=== PATIENT | male | born 1990 | race Caucasian/White ===

== ENCOUNTER 2019-02-01 10:03 | Inpatient (IN) | payer BC ==
[~2019-02-01] VITALS: Ht 157.5 cm; Wt 67.3 kg
[2019-02-01] MEDS ORDERED: 0.9 % SODIUM CHLORIDE 10 ML DISP.SYRIN. IV PRN ×2 (10:45→12:30)
[2019-02-01] MEDS ORDERED: MORPHINE SULFATE 4 MG/ML VIAL. IV/SQ PRN (10:45)
--- NOTE | 2019-02-01 11:00 | PHYS DOC ---
Past Medical History Past Medical History: No Pertinent History Past Surgical History: Other Additional Past Surgical Histo: Scoliosis surgery, with spinal fusion Alcohol Use: Occasionally Drug Use: None Adult General Chief Complaint Chief Complaint: SHORTNESS OF BREATH HPI HPI Patient is a 28 year old male with history scoliosis who presents to the ED today complaining of shortness of breath and a cough that began last week. Patient states he was seen at urgent care a week ago for fever, cough and shortness of breath. He states he was given Tamiflu. He states he went home and has been taking Tamiflu until Tuesday when he felt his symptoms have gotten worse. He went back to urgent care where he was given Augmentin, prednisone and codeine with promethazine. He states he has been taking this medications with no relief. He states he feels he is getting worse. Review of Systems Review of Systems Constitutional: Denies fever or chills [] Eyes: Denies change in visual acuity, redness, or eye pain [] HENT: Denies nasal congestion or sore throat [] Respiratory: Reports cough and shortness of breath GI: Denies abdominal pain, nausea, vomiting, bloody stools or diarrhea [] : Denies dysuria or hematuria [] Musculoskeletal: Denies back pain or joint pain [] Integument: Denies rash or skin lesions [] Neurologic: Denies headache, focal weakness or sensory changes [] All other systems were reviewed and found to be within normal limits, except as documented in this note. Current Medications Current Medications Current Medications Medications (Trade) Dose Ordered Sig/Teri Start Time Stop Time Status Last Admin Dose Admin Acetaminophen (Tylenol) 1,000 mg 1X ONCE 02/01/19 11:15 02/01/19 11:16 DC 02/01/19 11:18 1,000 MG Albuterol/ Ipratropium (Duoneb) 3 ml STK-MED ONCE 02/01/19 11:11 02/01/19 11:11 DC Levofloxacin/ Dextrose 100 ml @ 100 mls/hr 1X ONCE 02/01/19 11:45 02/01/19 12:44 UNV Methylprednisolone Sodium Succinate (SOLU-Medrol 125MG VIAL) 125 mg 1X ONCE 02/01/19 11:15 02/01/19 11:16 DC 02/01/19 11:14 125 MG Morphine Sulfate (Morphine Sulfate) 2 mg PRN Q2HR PRN 02/01/19 11:45 02/02/19 11:44 UNV Ondansetron HCl (Zofran) 4 mg PRN Q8HRS PRN 02/01/19 11:45 02/02/19 11:44 UNV Piperacillin Sod/ Tazobactam Sod 4.5 gm/Sodium Chloride 100 ml @ 200 mls/hr 1X ONCE 02/01/19 11:30 02/01/19 11:59 Sodium Chloride (Normal Saline Flush) 10 ml QSHIFT PRN 02/01/19 10:45 Allergies Allergies Allergies Coded Allergies Type Severity Reaction Last Updated Verified No Known Drug Allergies 02/01/19 No Physical Exam Physical Exam Constitutional: Well developed, well nourished, no acute distress, non-toxic appearance. [] HENT: Normocephalic, atraumatic, bilateral external ears normal, oropharynx moist, no oral exudates, nose normal. [] Eyes: PERRLA, EOMI, conjunctiva normal, no discharge. [] Neck: Normal range of motion, no tenderness, supple, no stridor. [] Cardiovascular: Tachycardic Lungs & Thorax: Bilateral breath sounds clear to auscultation [] Abdomen: Bowel sounds normal, soft, no tenderness, no masses, no pulsatile mas ses. [] Skin: Warm, dry, no erythema, no rash. [] Back: Scoliosis noted. No tenderness, no CVA tenderness. [] Extremities: No tenderness, no cyanosis, no clubbing, ROM intact, no edema. [] Neurologic: Alert and oriented X 3, normal motor function, normal sensory function, no focal deficits noted. [] Psychologic: Affect normal, judgement normal, mood normal. [] Current Patient Data Vital Signs Vital Signs Date Time Temp Pulse Resp B/P (MAP) Pulse Ox O2 Delivery O2 Flow Rate FiO2 02/01/19 11:27 93 Room Air 02/01/19 11:16 20 2.0 02/01/19 10:32 98.8 136 129/83 (98) 98.8 Lab Values Laboratory Tests Test 02/01/19 11:05 White Blood Count 17.4 x10^3/uL (4.0-11.0) H Red Blood Count 4.84 x10^6/uL (4.30-5.70) Hemoglobin 14.6 g/dL (13.0-17.5) Hematocrit 42.0 % (39.0-53.0) Mean Corpuscular Volume 87 fL (79-100) Mean Corpuscular Hemoglobin 30 pg (25-35) Mean Corpuscular Hemoglobin Concent 35 g/dL (31-37) Red Cell Distribution Width 12.5 % (11.5-14.5) Platelet Count 396 x10^3/uL (140-400) Neutrophils (%) (Auto) 92 % (31-73) H Lymphocytes (%) (Auto) 4 % (24-48) L Monocytes (%) (Auto) 4 % (0-9) Eosinophils (%) (Auto) 0 % (0-3) Basophils (%) (Auto) 0 % (0-3) Neutrophils # (Auto) 15.9 x10^3/uL (1.8-7.7) H Lymphocytes # (Auto) 0.6 x10^3/uL (1.0-4.8) L Monocytes # (Auto) 0.7 x10^3/uL (0.0-1.1) Eosinophils # (Auto) 0.1 x10^3/uL (0.0-0.7) Basophils # (Auto) 0.0 x10^3/uL (0.0-0.2) Platelet Estimate Pending Sodium Level 136 mmol/L (136-145) Potassium Level 3.9 mmol/L (3.5-5.1) Chloride Level 98 mmol/L (98-107) Carbon Dioxide Level 27 mmol/L (21-32) Anion Gap 11 (6-14) Blood Urea Nitrogen 12 mg/dL (8-26) Creatinine 0.8 mg/dL (0.7-1.3) Estimated GFR (Cockcroft-Gault) 114.3 BUN/Creatinine Ratio 15 (6-20) Glucose Level 114 mg/dL (70-99) H Calcium Level 9.0 mg/dL (8.5-10.1) Total Bilirubin Pending Aspartate Amino Transferase (AST) Pending Alanine Aminotransferase (ALT) Pending Alkaline Phosphatase Pending Total Protein Pending Albumin Pending Albumin/Globulin Ratio Pending Laboratory Tests 02/01/19 11:05 Laboratory Tests 02/01/19 11:05 EKG EKG [address] Mckinley sinus tachycardia HR 127 no STEMI[] Radiology/Procedures Radiology/Procedures []PROCEDURE: PORTABLE CHEST 1V EXAM: CHEST ONE VIEW. HISTORY: Shortness of breath. COMPARISON: None. FINDINGS: A frontal view of the chest is obtained. There is a moderate relatively focal midthoracic dextroscoliosis resulting in chest wall deformity and small lung volumes. There is an airspace infiltrate in the right upper lobe. Lesser opacities in both bases may indicate atelectasis. Relative mesocardia may be secondary to scoliosis. There is no pneumothorax or clear pleural effusion. The heart is not enlarged. IMPRESSION: 1. Right upper lobe pneumonia. 2. Lesser bibasilar atelectasis or infiltrate in the setting of chest wall deformity. Electronically signed by: Sahara Schwab MD (02/01/2019 11:04 AM) [facility] DICTATED and SIGNED BY: JOCELIN SCHWAB MD DATE: 02/01/19 1102 Course & Med Decision Making Course & Med Decision Making Pertinent Labs and Imaging studies reviewed. (See chart for details) This is a 28-year-old male patient presented to the ED today with complaints of fever cough or shortness of breath, symptoms began a week ago. He was diagnosed with influenza and put on Tamiflu a week ago, symptoms did not improve. He went back to urgent care on Tuesday and was started on Augmentin prednisone and codeine with promethazine, symptoms have not improved. Vitals on arrival to the ED temperature 98.8, heart rate 136, blood pressure 129/83, O2 sats 88% on room air patient was put on 2 L of oxygen with O2 sats of 94%, respiration 22 Chest x-ray interpreted by radiologist was noted for Right upper lobe pneumonia. Patient was given Zosyn on arrival to the ED. Levaquin was also ordered. Labs are pending. Spoke with Dr. Sierra who accepted patient for admission Parveen Disclaimer Parveen Disclaimer This electronic medical record was generated, in whole or in part, using a voice recognition dictation system. Departure Departure Impression: Primary Impression: Right upper lobe pneumonia Additional Impressions: Tachycardia Hypoxia Disposition: ADMITTED INPATIENT Condition: STABLE Referrals: MICHAEL JACKSON (PCP) Problem Qualifiers Primary Impression: Right upper lobe pneumonia Pneumonia type: due to unspecified organism Qualified Codes: J18.9 - Pneumonia, unspecified organism KRISHAN SOFIA APRN Feb 01, 2019 11:00
--- NOTE | 2019-02-01 11:07 | RAD ---
EXAM: CHEST ONE VIEW. HISTORY: Shortness of breath. COMPARISON: None. FINDINGS: A frontal view of the chest is obtained. There is a moderate relatively focal midthoracic dextroscoliosis resulting in chest wall deformity and small lung volumes. There is an airspace infiltrate in the right upper lobe. Lesser opacities in both bases may indicate atelectasis. Relative mesocardia may be secondary to scoliosis. There is no pneumothorax or clear pleural effusion. The heart is not enlarged. IMPRESSION: 1. Right upper lobe pneumonia. 2. Lesser bibasilar atelectasis or infiltrate in the setting of chest wall deformity. Electronically signed by: Sahara Schwab MD (02/01/2019 11:04 AM) [facility]
[2019-02-01] MEDS ORDERED: IPRATRPIUM/ALBUTEROL 0.5/2.5MG 3 ML NEBU. ONE (11:11)
[2019-02-01] MEDS ORDERED: ACETAMINOPHEN 500 MG TABLET PO ONE (11:15)
[2019-02-01] MEDS ORDERED: methylPREDNISolone SOD SUCC PF 125 MG/2 ML VIAL. IV ONE (11:15)
[2019-02-01] MEDS ORDERED: IPRATRPIUM/ALBUTEROL 0.5/2.5MG 3 ML NEBU. NEB ONE (11:15)
[2019-02-01 11:17] LABS: BASO % 0 % (0-3); EOS # 0.1 x10^3/uL (0.0-0.7); EOS % 0 % (0-3); HEMOGLOBIN 14.6 g/dL (13.0-17.5); LYMPH # 0.6 x10^3/uL (1.0-4.8); LYMPH % 4 % (24-48); MEAN CORPUSCULAR HEMOGLOBIN 30 pg (25-35); MEAN CORPUSCULAR HGB CONC 35 g/dL (31-37); MEAN CORPUSCULAR VOLUME 87 fL (79-100); MONO # 0.7 x10^3/uL (0.0-1.1); MONO % 4 % (0-9); NEUT # 15.9 x10^3/uL (1.8-7.7); NEUT % 92 % (31-73); PLATELET COUNT 396 x10^3/uL (140-400); RED BLOOD COUNT 4.84 x10^6/uL (4.30-5.70); RED CELL DISTRIBUTION WIDTH 12.5 % (11.5-14.5); WHITE BLOOD COUNT 17.4 x10^3/uL (4.0-11.0)
[2019-02-01 11:28] LABS: CREATININE 0.8 mg/dL (0.7-1.3); GFR 114.3; POTASSIUM 3.9 mmol/L (3.5-5.1)
[2019-02-01] MEDS ORDERED: PIPERACILLIN/TAZOBACTAM 4.5 GM in IV NORMAL SALINE 100ML 100 ML IV ONE (11:30)
--- NOTE | 2019-02-01 11:33 | PDOC1 ---
History and Physical Date of Admission Date of Admission DATE: 02/01/19 TIME: 11:32 Identification/Chief Complaint Chief Complaint seen in er , 28 year old male with history scoliosis who presents to the ED today complaining of shortness of breath and a cough that began last week. he was seen at urgent care a week ago for fever, cough and shortness of breath. He states he was given Tamiflu. He states he went home and has been taking Tamiflu until Tuesday when he felt his symptoms // worse. went back to urgent care where he was given Augmentin, prednisone and codeine with promethazine. He states he has been taking this medications with no relief. He states he feels he is getting worse. is tachy and SOA Past Medical History Cardiovascular: No pertinent hx Heme/Onc: No pertinent hx Family History Family History: High Cholestrol, Hypertension Social History Smoke: No ALCOHOL: none Drugs: None Current Problem List Problem List Problems Medical Problems: (1) Right upper lobe pneumonia Status: Acute (2) Tachycardia Status: Acute Current Medications Current Medications Current Medications Sodium Chloride (Normal Saline Flush) 10 ml QSHIFT PRN IV AFTER MEDS AND BLOOD DRAWS; Start 02/01/19 at 10:45 Piperacillin Sod/ Tazobactam Sod 4.5 gm/Sodium Chloride 100 ml @ 200 mls/hr 1X ONCE IV ; Start 02/01/19 at 11:30; Stop 02/01/19 at 11:59 Morphine Sulfate (Morphine Sulfate) 4 mg PRN Q15MIN PRN IV/SQ PAIN GREATER THAN 3/10 Last administered on 02/01/19at 11:16; Start 02/01/19 at 10:45; Stop 02/02/19 at 10:44 Albuterol/ Ipratropium (Duoneb) 3 ml 1X ONCE NEB Last administered on 02/01/19at 11:23; Start 02/01/19 at 11:15; Stop 02/01/19 at 11:16; Status DC Methylprednisolone Sodium Succinate (SOLU-Medrol 125MG VIAL) 125 mg 1X ONCE IV Last administered on 02/01/19at 11:14; Start 02/01/19 at 11:15; Stop 02/01/19 at 11:16; Status DC Acetaminophen (Tylenol) 1,000 mg 1X ONCE PO Last administered on 02/01/19at 11:18; Start 02/01/19 at 11:15; Stop 02/01/19 at 11:16; Status DC Albuterol/ Ipratropium (Duoneb) 3 ml STK-MED ONCE .ROUTE ; Start 02/01/19 at 11:11; Stop 02/01/19 at 11:11; Status DC Allergies Allergies: Coded Allergies: No Known Drug Allergies (Unverified , 02/01/19) ROS Review of System Review of Systems Review of Systems Constitutional: Denies fever or chills [] Eyes: Denies change in visual acuity, redness, or eye pain [] HENT: Denies nasal congestion or sore throat [] Respiratory: Reports cough and shortness of breath GI: Denies abdominal pain, nausea, vomiting, bloody stools or diarrhea [] : Denies dysuria or hematuria [] Musculoskeletal: Denies back pain or joint pain [] Integument: Denies rash or skin lesions [] Neurologic: Denies headache, focal weakness or sensory changes [] 14 PT systems were reviewed and found to be within normal limits, except as documented General: YES: Chills Eyes: No Blurry vision, No Decreased vision, No Double vision, No Dry eyes, No Excessive tearing, No Eye Pain, No Itchy Eyes, No Loss of vision, No Photophobia, No Scotomata, No Uses contacts, No Uses glasses, No Other ALLERGY AND IMMUNOLOGY: No: Hives, Insect Bite Sensitivity, Itchy/Watery Eyes, Nasal Congestion, Post Nasal Drip, Seasonal Allergies, Other Respiratory: YES: Cough, Shortness of breath, SOB with excertion Gastrointestinal: No Nausea, No Vomiting, No Abdominal Pain, No Diarrhea, No Constipation, No Melena, No Hematochezia, No Other Physical Exam Physical Exam Physical Exam Physical Exam Constitutional: Well developed, well nourished, MILD acute distress, non-toxic appearance. [] HENT: Normocephalic, atraumatic, bilateral external ears normal, oropharynx moist, no oral exudates, nose normal. [] Eyes: PERRLA, EOMI, conjunctiva normal, no discharge. [] Neck: Normal range of motion, no tenderness, supple, no stridor. [] Cardiovascular: Tachycardic Lungs & Thorax: DEC RUL breath sounds [] Abdomen: Bowel sounds normal, soft, no tenderness, no masses, no pulsatile masses. [] Skin: Warm, dry, no erythema, no rash. [] Back: Scoliosis noted. No tenderness, no CVA tenderness. [] Extremities: No tenderness, no cyanosis, no clubbing, ROM intact, no edema. [] Neurologic: Alert and oriented X 3, normal motor function, normal sensory function, no focal deficits noted. [] Psychologic: Affect normal, judgment normal, mood normal. [] General: Alert, Oriented X3, Cooperative, mild distress HEENT: Atraumatic, PERRLA, EOMI Lungs: Normal air movement Heart: RRR, no thrills, other (TACHY) Abdomen: Normal bowel sounds, Soft PELVIC: Examination not indicated Extremities: No cyanosis, No edema Skin: No rashes Neuro: Normal speech, Strength at 5/5 X4 ext, Cranial nerves 3-12 NL Psych/Mental Status: Mental status NL, Mood NL Vitals Vitals Vital Signs Date Time Temp Pulse Resp B/P (MAP) Pulse Ox O2 Delivery O2 Flow Rate FiO2 02/01/19 11:27 93 Room Air 02/01/19 11:16 20 2.0 02/01/19 10:32 98.8 136 129/83 (98) 98.8 Labs Labs Laboratory Tests Test 02/01/19 11:05 White Blood Count 17.4 x10^3/uL (4.0-11.0) Red Blood Count 4.84 x10^6/uL (4.30-5.70) Hemoglobin 14.6 g/dL (13.0-17.5) Hematocrit 42.0 % (39.0-53.0) Mean Corpuscular Volume 87 fL (79-100) Mean Corpuscular Hemoglobin 30 pg (25-35) Mean Corpuscular Hemoglobin Concent 35 g/dL (31-37) Red Cell Distribution Width 12.5 % (11.5-14.5) Platelet Count 396 x10^3/uL (140-400) Neutrophils (%) (Auto) 92 % (31-73) Lymphocytes (%) (Auto) 4 % (24-48) Monocytes (%) (Auto) 4 % (0-9) Eosinophils (%) (Auto) 0 % (0-3) Basophils (%) (Auto) 0 % (0-3) Neutrophils # (Auto) 15.9 x10^3/uL (1.8-7.7) Lymphocytes # (Auto) 0.6 x10^3/uL (1.0-4.8) Monocytes # (Auto) 0.7 x10^3/uL (0.0-1.1) Eosinophils # (Auto) 0.1 x10^3/uL (0.0-0.7) Basophils # (Auto) 0.0 x10^3/uL (0.0-0.2) Sodium Level 136 mmol/L (136-145) Potassium Level 3.9 mmol/L (3.5-5.1) Chloride Level 98 mmol/L (98-107) Carbon Dioxide Level 27 mmol/L (21-32) Anion Gap 11 (6-14) Blood Urea Nitrogen 12 mg/dL (8-26) Creatinine 0.8 mg/dL (0.7-1.3) Estimated GFR (Cockcroft-Gault) 114.3 BUN/Creatinine Ratio 15 (6-20) Glucose Level 114 mg/dL (70-99) Calcium Level 9.0 mg/dL (8.5-10.1) Laboratory Tests Test 02/01/19 11:05 White Blood Count 17.4 x10^3/uL (4.0-11.0) Red Blood Count 4.84 x10^6/uL (4.30-5.70) Hemoglobin 14.6 g/dL (13.0-17.5) Hematocrit 42.0 % (39.0-53.0) Mean Corpuscular Volume 87 fL (79-100) Mean Corpuscular Hemoglobin 30 pg (25-35) Mean Corpuscular Hemoglobin Concent 35 g/dL (31-37) Red Cell Distribution Width 12.5 % (11.5-14.5) Platelet Count 396 x10^3/uL (140-400) Neutrophils (%) (Auto) 92 % (31-73) Lymphocytes (%) (Auto) 4 % (24-48) Monocytes (%) (Auto) 4 % (0-9) Eosinophils (%) (Auto) 0 % (0-3) Basophils (%) (Auto) 0 % (0-3) Neutrophils # (Auto) 15.9 x10^3/uL (1.8-7.7) Lymphocytes # (Auto) 0.6 x10^3/uL (1.0-4.8) Monocytes # (Auto) 0.7 x10^3/uL (0.0-1.1) Eosinophils # (Auto) 0.1 x10^3/uL (0.0-0.7) Basophils # (Auto) 0.0 x10^3/uL (0.0-0.2) Sodium Level 136 mmol/L (136-145) Potassium Level 3.9 mmol/L (3.5-5.1) Chloride Level 98 mmol/L (98-107) Carbon Dioxide Level 27 mmol/L (21-32) Anion Gap 11 (6-14) Blood Urea Nitrogen 12 mg/dL (8-26) Creatinine 0.8 mg/dL (0.7-1.3) Estimated GFR (Cockcroft-Gault) 114.3 BUN/Creatinine Ratio 15 (6-20) Glucose Level 114 mg/dL (70-99) Calcium Level 9.0 mg/dL (8.5-10.1) Images Images EXAM: CHEST ONE VIEW. HISTORY: Shortness of breath. COMPARISON: None. FINDINGS: A frontal view of the chest is obtained. There is a moderate relatively focal midthoracic dextroscoliosis resulting in chest wall deformity and small lung volumes. There is an airspace infiltrate in the right upper lobe. Lesser opacities in both bases may indicate atelectasis. Relative mesocardia may be secondary to scoliosis. There is no pneumothorax or clear pleural effusion. The heart is not enlarged. IMPRESSION: 1. Right upper lobe pneumonia. 2. Lesser bibasilar atelectasis or infiltrate in the setting of chest wall deformity. Electronically signed by: Sahara Schwab MD (02/01/2019 11:04 AM) [facility] DICTATED and SIGNED BY: JOCELIN SCHWAB MD DATE: 02/01/19 1104 VTE Prophylaxis Ordered VTE Prophylaxis Devices: Yes VTE Pharmacological Prophylaxi: Yes Assessment/Plan Assessment/Plan IMPRESSION: 1. Right upper lobe pneumonia. 2. Lesser bibasilar atelectasis or infiltrate in the setting of chest wall deformity 3. SEPSIS 4. ACUTE HYPOXIC RESP FAILURE 5. FAILED OUTPT TREATMENT plan admit iv antibiotics, LEVAQUIN, ZOSYN BLOOD CULTURES PULM CONSULT DUONEBS QID STREP PNEUMO URINARY AG IV FLUID BOLUS IN ER DVT PROPHYLAXIS O2 SUPPORT INFLUENZA SCREEN ID CONSULT 74 MIN PT EXAM, CHART REVIEW, > 50% OF TIME SPENT WITH EXAM, CHART REVIEW, PT CARE COORDINATION NGA MANCERA MD Feb 01, 2019 11:32
[2019-02-01 11:35] LABS: ALBUMIN 3.3 g/dL (3.4-5.0); ALBUMIN/GLOBULIN RATIO 0.7 (1.0-1.7); TOTAL BILIRUBIN 0.4 mg/dL (0.2-1.0); TOTAL PROTEIN 7.8 g/dL (6.4-8.2)
[2019-02-01] MEDS ORDERED: MORPHINE SULFATE 2 MG/ML VIAL. IV PRN (11:45)
[2019-02-01] MEDS ORDERED: ONDANSETRON PF 4 MG/2 ML VIAL. IV PRN ×2 (11:45→12:30)
[2019-02-01 11:47] LABS: BILIRUBIN,URINE NEGATIVE (NEG); CLARITY,URINE CLEAR; COLOR,URINE YELLOW; NITRITE,URINE NEGATIVE (NEG); PROTEIN,URINE NEGATIVE (NEG-TRACE); UROBILINOGEN,URINE 0.2 mg/dL (0.2 mg/dL)
[2019-02-01] MEDS ORDERED: IV NORMAL SALINE 1000ML BAG 1,000 ML IV ONE ×2 (12:00)
[2019-02-01 12:01] LABS: SQUAMOUS EPITHELIAL CELL,UR OCC /LPF
[2019-02-01 12:02] LABS: BACTERIA,URINE FEW /HPF (0-FEW); RBC,URINE OCC /HPF (0-2); WBC,URINE OCC /HPF (0-4)
[2019-02-01 12:12] LABS: INFLUENZA A PATIENT NEGATIVE (NEGATIVE); INFLUENZA B PATIENT NEGATIVE (NEGATIVE)
[2019-02-01 12:19] LABS: % BANDS 3 % (0-9); % LYMPHS 8 % (24-48); % SEGS 89 % (35-66); PLT ESTIMATE ADEQUATE (ADEQUATE)
[2019-02-01] MEDS: IV NORMAL SALINE 1000ML BAG 1,000 ML IV SCH ×3 (12:22→16:15)
[2019-02-01 12:30] VITALS: BP 140/83
[2019-02-01] MEDS ORDERED: DOCUSATE SODIUM 100 MG CAPSULE. PO PRN (12:30)
[2019-02-01] MEDS ORDERED: LORazepam 0.5 MG TABLET PO PRN (12:30)
[2019-02-01] MEDS ORDERED: IV NORMAL SALINE 500ML BAG 500 ML IV PRN (12:30)
[2019-02-01] MEDS ORDERED: ACETAMINOPHEN 325 MG TABLET. PO PRN (12:30)
[2019-02-01] MEDS ORDERED: MAG HYDROX/ALUMINUM HYD/SIMETH 30 ML ORAL.SUSP PO PRN (12:30)
[2019-02-01] MEDS: IPRATRPIUM/ALBUTEROL 0.5/2.5MG 3 ML NEBU. NEB SCH ×3 (12:30→18:08)
[2019-02-01] MEDS ORDERED: cloNIDine HCL 0.1 MG TABLET PO PRN (12:30)
[2019-02-01] MEDS ORDERED: NOREPINEPHRIN 8MG/250ML PREMIX 250 ML IV PRN (12:30)
--- NOTE | 2019-02-01 12:40 | EKG ---
[facility] [address] [place] [address] Test Date: 2019-02-01 Test Time: 10:56:45 Pat Name: BRYCE GALLOWAY Department: Room: 572 1 Gender: M Senior Integration Developer: : 1990 Requested By: KRISHAN SOFIA Order Number: [id number] Reading MD: Vlad Foreman Measurements Intervals [place] Rate: 126 P: 43 IL: 110 QRS: 52 QRSD: 84 T: 36 QT: 302 QTc: 444 Interpretive Statements SINUS TACHYCARDIA Electronically Signed On 02-05-2019 14:52:11 RADIOLOGY SERVICES MANAGER by Vlad Foreman
[2019-02-01] MEDS: ENOXAPARIN 40 MG/0.4 ML SYRINGE. SQ SCH (12:50)
[2019-02-01 12:51] LABS: PROTHROMBIN TIME PATIENT 14.1 SEC (11.7-14.0)
--- NOTE | 2019-02-01 13:17 | PDOC ---
PULMONARY PROGRESS NOTES Vitals Vital Signs Date Time Temp Pulse Resp B/P (MAP) Pulse Ox O2 Delivery O2 Flow Rate FiO2 02/01/19 12:25 126 20 121/79 (93) 96 Nasal Cannula 2.0 02/01/19 10:32 98.8 98.8 Labs Laboratory Tests Test 02/01/19 11:05 02/01/19 11:25 02/01/19 11:30 White Blood Count 17.4 x10^3/uL (4.0-11.0) Red Blood Count 4.84 x10^6/uL (4.30-5.70) Hemoglobin 14.6 g/dL (13.0-17.5) Hematocrit 42.0 % (39.0-53.0) Mean Corpuscular Volume 87 fL (79-100) Mean Corpuscular Hemoglobin 30 pg (25-35) Mean Corpuscular Hemoglobin Concent 35 g/dL (31-37) Red Cell Distribution Width 12.5 % (11.5-14.5) Platelet Count 396 x10^3/uL (140-400) Neutrophils (%) (Auto) 92 % (31-73) Lymphocytes (%) (Auto) 4 % (24-48) Monocytes (%) (Auto) 4 % (0-9) Eosinophils (%) (Auto) 0 % (0-3) Basophils (%) (Auto) 0 % (0-3) Neutrophils # (Auto) 15.9 x10^3/uL (1.8-7.7) Lymphocytes # (Auto) 0.6 x10^3/uL (1.0-4.8) Monocytes # (Auto) 0.7 x10^3/uL (0.0-1.1) Eosinophils # (Auto) 0.1 x10^3/uL (0.0-0.7) Basophils # (Auto) 0.0 x10^3/uL (0.0-0.2) Segmented Neutrophils % 89 % (35-66) Band Neutrophils % 3 % (0-9) Lymphocytes % 8 % (24-48) Platelet Estimate Adequate (ADEQUATE) Prothrombin Time 14.1 SEC (11.7-14.0) Prothromb Time International Ratio 1.1 (0.8-1.1) Activated Partial Thromboplast Time 32 SEC (24-38) Fibrinogen 671 mg/dL (200-440) D-Dimer (Sasha) 1.27 ug/mlFEU (0.00-0.50) Sodium Level 136 mmol/L (136-145) Potassium Level 3.9 mmol/L (3.5-5.1) Chloride Level 98 mmol/L (98-107) Carbon Dioxide Level 27 mmol/L (21-32) Anion Gap 11 (6-14) Blood Urea Nitrogen 12 mg/dL (8-26) Creatinine 0.8 mg/dL (0.7-1.3) Estimated GFR (Cockcroft-Gault) 114.3 BUN/Creatinine Ratio 15 (6-20) Glucose Level 114 mg/dL (70-99) Lactic Acid Level 1.0 mmol/L (0.4-2.0) Calcium Level 9.0 mg/dL (8.5-10.1) Total Bilirubin 0.4 mg/dL (0.2-1.0) Aspartate Amino Transf (AST/SGOT) 25 U/L (15-37) Alanine Aminotransferase (ALT/SGPT) 24 U/L (16-63) Alkaline Phosphatase 82 U/L (46-116) Creatine Kinase 301 U/L (39-308) Creatine Kinase MB (Mass) 0.5 ng/mL (0.0-3.6) Creatine Kinase MB Relative Index 0.2 % (0-4) Total Protein 7.8 g/dL (6.4-8.2) Albumin 3.3 g/dL (3.4-5.0) Albumin/Globulin Ratio 0.7 (1.0-1.7) Procalcitonin < 0.10 ng/mL (0.00-0.10) Urine Collection Type Unknown Urine Color Yellow Urine Clarity Clear Urine pH 7.0 Urine Specific Reform 1.010 Urine Protein Negative mg/dL (NEG-TRACE) Urine Glucose (UA) Negative mg/dL (NEG) Urine Ketones (Stick) 15 mg/dL (NEG) Urine Blood Negative (NEG) Urine Nitrite Negative (NEG) Urine Bilirubin Negative (NEG) Urine Urobilinogen Dipstick 0.2 mg/dL (0.2 mg/dL) Urine Leukocyte Esterase Negative (NEG) Urine RBC Occ /HPF (0-2) Urine WBC Occ /HPF (0-4) Urine Squamous Epithelial Cells Occ /LPF Urine Bacteria Few /HPF (0-FEW) Influenza Type A Antigen Negative (NEGATIVE) Influenza Type B Antigen Negative (NEGATIVE) Laboratory Tests Test 02/01/19 11:05 02/01/19 11:25 02/01/19 11:30 White Blood Count 17.4 x10^3/uL (4.0-11.0) Red Blood Count 4.84 x10^6/uL (4.30-5.70) Hemoglobin 14.6 g/dL (13.0-17.5) Hematocrit 42.0 % (39.0-53.0) Mean Corpuscular Volume 87 fL (79-100) Mean Corpuscular Hemoglobin 30 pg (25-35) Mean Corpuscular Hemoglobin Concent 35 g/dL (31-37) Red Cell Distribution Width 12.5 % (11.5-14.5) Platelet Count 396 x10^3/uL (140-400) Neutrophils (%) (Auto) 92 % (31-73) Lymphocytes (%) (Auto) 4 % (24-48) Monocytes (%) (Auto) 4 % (0-9) Eosinophils (%) (Auto) 0 % (0-3) Basophils (%) (Auto) 0 % (0-3) Neutrophils # (Auto) 15.9 x10^3/uL (1.8-7.7) Lymphocytes # (Auto) 0.6 x10^3/uL (1.0-4.8) Monocytes # (Auto) 0.7 x10^3/uL (0.0-1.1) Eosinophils # (Auto) 0.1 x10^3/uL (0.0-0.7) Basophils # (Auto) 0.0 x10^3/uL (0.0-0.2) Segmented Neutrophils % 89 % (35-66) Band Neutrophils % 3 % (0-9) Lymphocytes % 8 % (24-48) Platelet Estimate Adequate (ADEQUATE) Prothrombin Time 14.1 SEC (11.7-14.0) Prothromb Time International Ratio 1.1 (0.8-1.1) Activated Partial Thromboplast Time 32 SEC (24-38) Fibrinogen 671 mg/dL (200-440) D-Dimer (Sasha) 1.27 ug/mlFEU (0.00-0.50) Sodium Level 136 mmol/L (136-145) Potassium Level 3.9 mmol/L (3.5-5.1) Chloride Level 98 mmol/L (98-107) Carbon Dioxide Level 27 mmol/L (21-32) Anion Gap 11 (6-14) Blood Urea Nitrogen 12 mg/dL (8-26) Creatinine 0.8 mg/dL (0.7-1.3) Estimated GFR (Cockcroft-Gault) 114.3 BUN/Creatinine Ratio 15 (6-20) Glucose Level 114 mg/dL (70-99) Lactic Acid Level 1.0 mmol/L (0.4-2.0) Calcium Level 9.0 mg/dL (8.5-10.1) Total Bilirubin 0.4 mg/dL (0.2-1.0) Aspartate Amino Transf (AST/SGOT) 25 U/L (15-37) Alanine Aminotransferase (ALT/SGPT) 24 U/L (16-63) Alkaline Phosphatase 82 U/L (46-116) Creatine Kinase 301 U/L (39-308) Creatine Kinase MB (Mass) 0.5 ng/mL (0.0-3.6) Creatine Kinase MB Relative Index 0.2 % (0-4) Total Protein 7.8 g/dL (6.4-8.2) Albumin 3.3 g/dL (3.4-5.0) Albumin/Globulin Ratio 0.7 (1.0-1.7) Procalcitonin < 0.10 ng/mL (0.00-0.10) Urine Collection Type Unknown Urine Color Yellow Urine Clarity Clear Urine pH 7.0 Urine Specific Reform 1.010 Urine Protein Negative mg/dL (NEG-TRACE) Urine Glucose (UA) Negative mg/dL (NEG) Urine Ketones (Stick) 15 mg/dL (NEG) Urine Blood Negative (NEG) Urine Nitrite Negative (NEG) Urine Bilirubin Negative (NEG) Urine Urobilinogen Dipstick 0.2 mg/dL (0.2 mg/dL) Urine Leukocyte Esterase Negative (NEG) Urine RBC Occ /HPF (0-2) Urine WBC Occ /HPF (0-4) Urine Squamous Epithelial Cells Occ /LPF Urine Bacteria Few /HPF (0-FEW) Influenza Type A Antigen Negative (NEGATIVE) Influenza Type B Antigen Negative (NEGATIVE) Impression . FULL NOTE DICTATED AGREE WITH CURRENT RX FOR PNEUMONIA SISILLO,SABATO MD Feb 01, 2019 13:17
--- NOTE | 2019-02-01 13:55 | CONS ---
DATE OF CONSULTATION: 02/01/2019 ATTENDING PHYSICIAN: Florentino Sierra MD. REASON FOR CONSULTATION: The patient seen in pulmonary consultation at the request of Dr. Sierra for abnormal chest x-ray, increasing shortness of air, the patient failed outpatient treatment for pneumonia. HISTORY OF PRESENT ILLNESS: The patient is a 28-year-old male with a history of scoliosis, presented to urgent care center at the beginning of the week with clinical symptoms and signs of influenza. He was given Tamiflu. He returned 2 days later with increasing shortness of breath, cough and fever. He was placed on Augmentin, prednisone and codeine. The patient did not improve. As a consequence of not being able to walk across the room without significant shortness of air, he was seen in the Emergency Department and admitted. Chest x-ray was obtained, which revealed right upper lobe infiltrate, consolidation. I was asked to see him in consultation. The patient has no prior medical history. He does have underlying scoliosis. He has never smoked. He has not been vaping. He works at [employer]. No significant occupational exposures. FAMILY HISTORY: Hyperlipidemia, hypertension. SOCIAL HISTORY: Nonsmoker. He does have a dog and a cat at home. REVIEW OF SYSTEMS: As indicated above, otherwise, a 10-point system was reviewed and negative. ALLERGIES: No known drug allergies. PHYSICAL EXAMINATION: VITAL SIGNS: Stable. O2 saturation was greater than 92%. HEENT: Eyes, the sclerae were nonicteric. NECK: Jugular venous distention was not elevated. No lymphadenopathy. CHEST: Full expansion. LUNGS: He had increased breath sounds in the right base with egophony and some scattered rhonchi. CARDIOVASCULAR: Regular rate and rhythm with S1, S2, no S3. ABDOMEN: Soft, nontender, nondistended. EXTREMITIES: No clubbing, cyanosis or edema. NEUROLOGIC: The patient was awake, alert, following commands. A detailed neuro exam was not performed. LABORATORY DATA: Reviewed. Serology for influenza was negative. White count was elevated. Hemoglobin and hematocrit were noted. IMPRESSION: 1. Abnormal x-ray compatible with pneumonia post-influenza pneumonia. 2. Suspect gram-negative, possibly gram-positive pneumonia. 3. Acute hypoxemic respiratory failure. 4. Scoliosis. 5. Leukocytosis. PLAN: 1. Concur with current medical management. Continue current broad-spectrum antibiotics. 2. Incentive spirometry. 3. Oxygen supplementation. 4. Nebulized treatments. As indicated above, the patient failed outpatient treatment. As a consequence, he was admitted for increasing shortness of air and hypoxemia. We will make further recommendation depending on the patient's clinical response. I do appreciate the privilege in sharing in the patient's care. KAI VASQUEZ MD DR: SANGEETHA/omega JOB#: [id number] / [id number]
[2019-02-01 15:00] VITALS: BP 129/89
[2019-02-01] MEDS: PIPERACILLIN/TAZOBACTAM 3.375 GM in IV NORMAL SALINE 50ML 50 ML IV SCH (17:21)
[2019-02-01 19:00] VITALS: BP 122/76
[2019-02-01] MEDS: BENZOCAINE/MENTHOL LOZENGE. PO PRN (20:41)
[2019-02-01 23:00] VITALS: BP 126/83
[2019-02-02] MEDS: PIPERACILLIN/TAZOBACTAM 3.375 GM in IV NORMAL SALINE 50ML 50 ML IV SCH ×2 (00:45→06:25)
[2019-02-02] MEDS: IV NORMAL SALINE 1000ML BAG 1,000 ML IV SCH ×2 (03:20→14:09)
[2019-02-02 04:00] VITALS: BP 125/83
[2019-02-02] MEDS: IPRATRPIUM/ALBUTEROL 0.5/2.5MG 3 ML NEBU. NEB SCH ×7 (04:27→23:29)
[2019-02-02 07:00] VITALS: BP 125/85
[2019-02-02 08:38] LABS: BASO % 0 % (0-3); EOS % 0 % (0-3); HEMOGLOBIN 13.4 g/dL (13.0-17.5); LYMPH % 7 % (24-48); MEAN CORPUSCULAR HEMOGLOBIN 30 pg (25-35); MEAN CORPUSCULAR HGB CONC 34 g/dL (31-37); MEAN CORPUSCULAR VOLUME 88 fL (79-100); MONO # 1.3 x10^3/uL (0.0-1.1); MONO % 10 % (0-9); NEUT # 11.5 x10^3/uL (1.8-7.7); NEUT % 83 % (31-73); PLATELET COUNT 375 x10^3/uL (140-400); RED BLOOD COUNT 4.44 x10^6/uL (4.30-5.70); RED CELL DISTRIBUTION WIDTH 12.7 % (11.5-14.5); WHITE BLOOD COUNT 13.8 x10^3/uL (4.0-11.0)
[2019-02-02 08:44] LABS: ALBUMIN/GLOBULIN RATIO 0.7 (1.0-1.7); CALCIUM 8.7 mg/dL (8.5-10.1); CREATININE 0.8 mg/dL (0.7-1.3); GFR 114.3; POTASSIUM 3.5 mmol/L (3.5-5.1); TOTAL BILIRUBIN 0.3 mg/dL (0.2-1.0); TOTAL PROTEIN 7.1 g/dL (6.4-8.2)
[2019-02-02 11:00] VITALS: BP 120/77
[2019-02-02] MEDS: ENOXAPARIN 40 MG/0.4 ML SYRINGE. SQ SCH (11:19)
--- NOTE | 2019-02-02 11:22 | PDOC ---
[facility] PROGRESS NOTE Chief Complaint Chief Complaint Right upper lobe pneumonia. Lesser bibasilar atelectasis or infiltrate in the setting of chest wall deformity SEPSIS ACUTE HYPOXIC RESP FAILURE FAILED OUTPT TREATMENT History of Present Illness History of Present Illness 02/02/19 Pt seen and examined Pt still wheezing DW RN Chart Reviewed Vitals/I&O Vitals/I&O: Vital Signs Date Time Temp Pulse Resp B/P (MAP) Pulse Ox O2 Delivery O2 Flow Rate FiO2 02/02/19 07:54 96 Nasal Cannula 2.0 02/02/19 07:00 97.8 97 16 125/85 (98) 97.8 I & O 02/01/19 02/01/19 02/02/19 15:00 23:00 07:00 Intake Total 100 ml 0 ml 150 ml Balance 100 ml 0 ml 150 ml Physical Exam General: Alert, Oriented X3, Cooperative, mild distress Heart: Regular rate, Normal S1, Normal S2 Lungs: Wheezing Abdomen: Normal bowel sounds, Soft Extremities: No cyanosis, No edema Skin: No rashes Labs Labs: Laboratory Tests Test 02/01/19 11:25 02/01/19 11:30 02/02/19 07:44 Urine Collection Type Unknown Urine Color Yellow Urine Clarity Clear Urine pH 7.0 Urine Specific [place] 1.010 Urine Protein Negative mg/dL (NEG-TRACE) Urine Glucose (UA) Negative mg/dL (NEG) Urine Ketones (Stick) 15 mg/dL (NEG) Urine Blood Negative (NEG) Urine Nitrite Negative (NEG) Urine Bilirubin Negative (NEG) Urine Urobilinogen Dipstick 0.2 mg/dL (0.2 mg/dL) Urine Leukocyte Esterase Negative (NEG) Urine RBC Occ /HPF (0-2) Urine WBC Occ /HPF (0-4) Urine Squamous Epithelial Cells Occ /LPF Urine Bacteria Few /HPF (0-FEW) Influenza Type A Antigen Negative (NEGATIVE) Influenza Type B Antigen Negative (NEGATIVE) White Blood Count 13.8 x10^3/uL (4.0-11.0) Red Blood Count 4.44 x10^6/uL (4.30-5.70) Hemoglobin 13.4 g/dL (13.0-17.5) Hematocrit 39.0 % (39.0-53.0) Mean Corpuscular Volume 88 fL (79-100) Mean Corpuscular Hemoglobin 30 pg (25-35) Mean Corpuscular Hemoglobin Concent 34 g/dL (31-37) Red Cell Distribution Width 12.7 % (11.5-14.5) Platelet Count 375 x10^3/uL (140-400) Neutrophils (%) (Auto) 83 % (31-73) Lymphocytes (%) (Auto) 7 % (24-48) Monocytes (%) (Auto) 10 % (0-9) Eosinophils (%) (Auto) 0 % (0-3) Basophils (%) (Auto) 0 % (0-3) Neutrophils # (Auto) 11.5 x10^3/uL (1.8-7.7) Lymphocytes # (Auto) 1.0 x10^3/uL (1.0-4.8) Monocytes # (Auto) 1.3 x10^3/uL (0.0-1.1) Eosinophils # (Auto) 0.0 x10^3/uL (0.0-0.7) Basophils # (Auto) 0.0 x10^3/uL (0.0-0.2) Sodium Level 142 mmol/L (136-145) Potassium Level 3.5 mmol/L (3.5-5.1) Chloride Level 104 mmol/L (98-107) Carbon Dioxide Level 26 mmol/L (21-32) Anion Gap 12 (6-14) Blood Urea Nitrogen 8 mg/dL (8-26) Creatinine 0.8 mg/dL (0.7-1.3) Estimated GFR (Cockcroft-Gault) 114.3 BUN/Creatinine Ratio 10 (6-20) Glucose Level 114 mg/dL (70-99) Calcium Level 8.7 mg/dL (8.5-10.1) Total Bilirubin 0.3 mg/dL (0.2-1.0) Aspartate Amino Transf (AST/SGOT) 19 U/L (15-37) Alanine Aminotransferase (ALT/SGPT) 17 U/L (16-63) Alkaline Phosphatase 72 U/L (46-116) Total Protein 7.1 g/dL (6.4-8.2) Albumin 3.0 g/dL (3.4-5.0) Albumin/Globulin Ratio 0.7 (1.0-1.7) Review of Systems Review of Systems: (-) CP, SOB Assessment and Plan Assessmemt and Plan Problems Medical Problems: (1) Hypoxia Status: Acute (2) Right upper lobe pneumonia Status: Acute (3) Tachycardia Status: Acute Plan: Continue O2 Breathing tx DVT ppx home meds Full code Comment Review of Relevant I have reviewed the following items grazyna (where applicable) has been applied. Medications: Current Medications Medications (Trade) Dose Ordered Sig/Teri Route PRN Reason Start Time Stop Time Status Last Admin Dose Admin Piperacillin Sod/ Tazobactam Sod 4.5 gm/Sodium Chloride 100 ml @ 200 mls/hr 1X ONCE IV 02/01/19 11:30 02/01/19 11:59 DC 02/01/19 11:44 Levofloxacin/ Dextrose 100 ml @ 100 mls/hr 1X ONCE IV 02/01/19 11:45 02/01/19 12:44 DC 02/01/19 12:49 Sodium Chloride 1,000 ml @ 1,000 mls/hr 1X ONCE IV 02/01/19 12:00 02/01/19 12:59 DC 02/01/19 11:56 Sodium Chloride 1,000 ml @ 1,000 mls/hr 1X ONCE IV 02/01/19 12:00 02/01/19 12:59 DC 02/01/19 12:49 Sodium Chloride 1,000 ml @ 100 mls/hr Q10H IV 02/01/19 12:16 02/02/19 03:20 Albuterol/ Ipratropium (Duoneb) 3 ml Q4HRS NEB 02/01/19 12:30 02/02/19 07:53 Enoxaparin Sodium (Lovenox 40mg Syringe) 40 mg DAILY SQ 02/01/19 13:00 02/01/19 12:50 Piperacillin Sod/ Tazobactam Sod 3.375 gm/Sodium Chloride 50 ml @ 100 mls/hr Q6HRS IV 02/01/19 18:00 02/02/19 06:25 Throat Lozenges (Cepacol Sore Throat Lozenge) 1 gerri PRN TID PRN PO SORE THROAT 02/01/19 20:15 02/01/19 20:41 SILVIO GAONA III DO Feb 02, 2019 11:22
--- NOTE | 2019-02-02 11:31 | PDOC ---
Infectious Disease Note Vital Sign Vital Signs Vital Signs Date Time Temp Pulse Resp B/P (MAP) Pulse Ox O2 Delivery O2 Flow Rate FiO2 02/02/19 07:54 96 Nasal Cannula 2.0 02/02/19 07:00 97.8 97 16 125/85 (98) 97.8 Labs Lab Laboratory Tests Test 02/01/19 11:05 02/01/19 11:25 02/01/19 11:30 02/02/19 07:44 White Blood Count 17.4 x10^3/uL (4.0-11.0) 13.8 x10^3/uL (4.0-11.0) Red Blood Count 4.84 x10^6/uL (4.30-5.70) 4.44 x10^6/uL (4.30-5.70) Hemoglobin 14.6 g/dL (13.0-17.5) 13.4 g/dL (13.0-17.5) Hematocrit 42.0 % (39.0-53.0) 39.0 % (39.0-53.0) Mean Corpuscular Volume 87 fL (79-100) 88 fL (79-100) Mean Corpuscular Hemoglobin 30 pg (25-35) 30 pg (25-35) Mean Corpuscular Hemoglobin Concent 35 g/dL (31-37) 34 g/dL (31-37) Red Cell Distribution Width 12.5 % (11.5-14.5) 12.7 % (11.5-14.5) Platelet Count 396 x10^3/uL (140-400) 375 x10^3/uL (140-400) Neutrophils (%) (Auto) 92 % (31-73) 83 % (31-73) Lymphocytes (%) (Auto) 4 % (24-48) 7 % (24-48) Monocytes (%) (Auto) 4 % (0-9) 10 % (0-9) Eosinophils (%) (Auto) 0 % (0-3) 0 % (0-3) Basophils (%) (Auto) 0 % (0-3) 0 % (0-3) Neutrophils # (Auto) 15.9 x10^3/uL (1.8-7.7) 11.5 x10^3/uL (1.8-7.7) Lymphocytes # (Auto) 0.6 x10^3/uL (1.0-4.8) 1.0 x10^3/uL (1.0-4.8) Monocytes # (Auto) 0.7 x10^3/uL (0.0-1.1) 1.3 x10^3/uL (0.0-1.1) Eosinophils # (Auto) 0.1 x10^3/uL (0.0-0.7) 0.0 x10^3/uL (0.0-0.7) Basophils # (Auto) 0.0 x10^3/uL (0.0-0.2) 0.0 x10^3/uL (0.0-0.2) Segmented Neutrophils % 89 % (35-66) Band Neutrophils % 3 % (0-9) Lymphocytes % 8 % (24-48) Platelet Estimate Adequate (ADEQUATE) Prothrombin Time 14.1 SEC (11.7-14.0) Prothromb Time International Ratio 1.1 (0.8-1.1) Activated Partial Thromboplast Time 32 SEC (24-38) Fibrinogen 671 mg/dL (200-440) D-Dimer (Sasha) 1.27 ug/mlFEU (0.00-0.50) Sodium Level 136 mmol/L (136-145) 142 mmol/L (136-145) Potassium Level 3.9 mmol/L (3.5-5.1) 3.5 mmol/L (3.5-5.1) Chloride Level 98 mmol/L (98-107) 104 mmol/L (98-107) Carbon Dioxide Level 27 mmol/L (21-32) 26 mmol/L (21-32) Anion Gap 11 (6-14) 12 (6-14) Blood Urea Nitrogen 12 mg/dL (8-26) 8 mg/dL (8-26) Creatinine 0.8 mg/dL (0.7-1.3) 0.8 mg/dL (0.7-1.3) Estimated GFR (Cockcroft-Gault) 114.3 114.3 BUN/Creatinine Ratio 15 (6-20) 10 (6-20) Glucose Level 114 mg/dL (70-99) 114 mg/dL (70-99) Lactic Acid Level 1.0 mmol/L (0.4-2.0) Calcium Level 9.0 mg/dL (8.5-10.1) 8.7 mg/dL (8.5-10.1) Total Bilirubin 0.4 mg/dL (0.2-1.0) 0.3 mg/dL (0.2-1.0) Aspartate Amino Transf (AST/SGOT) 25 U/L (15-37) 19 U/L (15-37) Alanine Aminotransferase (ALT/SGPT) 24 U/L (16-63) 17 U/L (16-63) Alkaline Phosphatase 82 U/L (46-116) 72 U/L (46-116) Creatine Kinase 301 U/L (39-308) Creatine Kinase MB (Mass) 0.5 ng/mL (0.0-3.6) Creatine Kinase MB Relative Index 0.2 % (0-4) Total Protein 7.8 g/dL (6.4-8.2) 7.1 g/dL (6.4-8.2) Albumin 3.3 g/dL (3.4-5.0) 3.0 g/dL (3.4-5.0) Albumin/Globulin Ratio 0.7 (1.0-1.7) 0.7 (1.0-1.7) Procalcitonin < 0.10 ng/mL (0.00-0.10) Urine Collection Type Unknown Urine Color Yellow Urine Clarity Clear Urine pH 7.0 Urine Specific [place] 1.010 Urine Protein Negative mg/dL (NEG-TRACE) Urine Glucose (UA) Negative mg/dL (NEG) Urine Ketones (Stick) 15 mg/dL (NEG) Urine Blood Negative (NEG) Urine Nitrite Negative (NEG) Urine Bilirubin Negative (NEG) Urine Urobilinogen Dipstick 0.2 mg/dL (0.2 mg/dL) Urine Leukocyte Esterase Negative (NEG) Urine RBC Occ /HPF (0-2) Urine WBC Occ /HPF (0-4) Urine Squamous Epithelial Cells Occ /LPF Urine Bacteria Few /HPF (0-FEW) Influenza Type A Antigen Negative (NEGATIVE) Influenza Type B Antigen Negative (NEGATIVE) Objective Assessment RUL pneumonia previous Augmentin/Tamiflu Leukocytosis - on steroids prior to admit Acute hypoxic resp failure Scoliosis Plan Plan of Care Cont Zosyn and Levoflox to po Added Mycoplasma F/u strep and legionella antigens Resp viral panel not available - could be posr viral syndrome F/u labs and cults Did receive solumedrol times one 02/01 Thank you # [id number] QUINTIN HERNANDEZ MD Feb 02, 2019 11:31
--- NOTE | 2019-02-02 11:43 | PDOC ---
PULMONARY PROGRESS NOTES Subjective PT FEELS BETTER LESS SOA Vitals Vital Signs Date Time Temp Pulse Resp B/P (MAP) Pulse Ox O2 Delivery O2 Flow Rate FiO2 02/02/19 11:00 97.9 101 18 120/77 (91) 96 Nasal Cannula 2.0 97.9 ROS: No Nausea, No Chest Pain, No Abdominal Pain, No Increase Cough General: Alert Lungs: Wheezing Cardiovascular: S1 Abdomen: Soft Neuro Exam: Alert Extremities: No Edema Skin: Warm Labs Laboratory Tests Test 02/01/19 11:05 02/01/19 11:25 02/01/19 11:30 02/02/19 07:44 White Blood Count 17.4 x10^3/uL (4.0-11.0) 13.8 x10^3/uL (4.0-11.0) Red Blood Count 4.84 x10^6/uL (4.30-5.70) 4.44 x10^6/uL (4.30-5.70) Hemoglobin 14.6 g/dL (13.0-17.5) 13.4 g/dL (13.0-17.5) Hematocrit 42.0 % (39.0-53.0) 39.0 % (39.0-53.0) Mean Corpuscular Volume 87 fL (79-100) 88 fL (79-100) Mean Corpuscular Hemoglobin 30 pg (25-35) 30 pg (25-35) Mean Corpuscular Hemoglobin Concent 35 g/dL (31-37) 34 g/dL (31-37) Red Cell Distribution Width 12.5 % (11.5-14.5) 12.7 % (11.5-14.5) Platelet Count 396 x10^3/uL (140-400) 375 x10^3/uL (140-400) Neutrophils (%) (Auto) 92 % (31-73) 83 % (31-73) Lymphocytes (%) (Auto) 4 % (24-48) 7 % (24-48) Monocytes (%) (Auto) 4 % (0-9) 10 % (0-9) Eosinophils (%) (Auto) 0 % (0-3) 0 % (0-3) Basophils (%) (Auto) 0 % (0-3) 0 % (0-3) Neutrophils # (Auto) 15.9 x10^3/uL (1.8-7.7) 11.5 x10^3/uL (1.8-7.7) Lymphocytes # (Auto) 0.6 x10^3/uL (1.0-4.8) 1.0 x10^3/uL (1.0-4.8) Monocytes # (Auto) 0.7 x10^3/uL (0.0-1.1) 1.3 x10^3/uL (0.0-1.1) Eosinophils # (Auto) 0.1 x10^3/uL (0.0-0.7) 0.0 x10^3/uL (0.0-0.7) Basophils # (Auto) 0.0 x10^3/uL (0.0-0.2) 0.0 x10^3/uL (0.0-0.2) Segmented Neutrophils % 89 % (35-66) Band Neutrophils % 3 % (0-9) Lymphocytes % 8 % (24-48) Platelet Estimate Adequate (ADEQUATE) Prothrombin Time 14.1 SEC (11.7-14.0) Prothromb Time International Ratio 1.1 (0.8-1.1) Activated Partial Thromboplast Time 32 SEC (24-38) Fibrinogen 671 mg/dL (200-440) D-Dimer (Sasha) 1.27 ug/mlFEU (0.00-0.50) Sodium Level 136 mmol/L (136-145) 142 mmol/L (136-145) Potassium Level 3.9 mmol/L (3.5-5.1) 3.5 mmol/L (3.5-5.1) Chloride Level 98 mmol/L (98-107) 104 mmol/L (98-107) Carbon Dioxide Level 27 mmol/L (21-32) 26 mmol/L (21-32) Anion Gap 11 (6-14) 12 (6-14) Blood Urea Nitrogen 12 mg/dL (8-26) 8 mg/dL (8-26) Creatinine 0.8 mg/dL (0.7-1.3) 0.8 mg/dL (0.7-1.3) Estimated GFR (Cockcroft-Gault) 114.3 114.3 BUN/Creatinine Ratio 15 (6-20) 10 (6-20) Glucose Level 114 mg/dL (70-99) 114 mg/dL (70-99) Lactic Acid Level 1.0 mmol/L (0.4-2.0) Calcium Level 9.0 mg/dL (8.5-10.1) 8.7 mg/dL (8.5-10.1) Total Bilirubin 0.4 mg/dL (0.2-1.0) 0.3 mg/dL (0.2-1.0) Aspartate Amino Transf (AST/SGOT) 25 U/L (15-37) 19 U/L (15-37) Alanine Aminotransferase (ALT/SGPT) 24 U/L (16-63) 17 U/L (16-63) Alkaline Phosphatase 82 U/L (46-116) 72 U/L (46-116) Creatine Kinase 301 U/L (39-308) Creatine Kinase MB (Mass) 0.5 ng/mL (0.0-3.6) Creatine Kinase MB Relative Index 0.2 % (0-4) Total Protein 7.8 g/dL (6.4-8.2) 7.1 g/dL (6.4-8.2) Albumin 3.3 g/dL (3.4-5.0) 3.0 g/dL (3.4-5.0) Albumin/Globulin Ratio 0.7 (1.0-1.7) 0.7 (1.0-1.7) Procalcitonin < 0.10 ng/mL (0.00-0.10) Urine Collection Type Unknown Urine Color Yellow Urine Clarity Clear Urine pH 7.0 Urine Specific [place] 1.010 Urine Protein Negative mg/dL (NEG-TRACE) Urine Glucose (UA) Negative mg/dL (NEG) Urine Ketones (Stick) 15 mg/dL (NEG) Urine Blood Negative (NEG) Urine Nitrite Negative (NEG) Urine Bilirubin Negative (NEG) Urine Urobilinogen Dipstick 0.2 mg/dL (0.2 mg/dL) Urine Leukocyte Esterase Negative (NEG) Urine RBC Occ /HPF (0-2) Urine WBC Occ /HPF (0-4) Urine Squamous Epithelial Cells Occ /LPF Urine Bacteria Few /HPF (0-FEW) Influenza Type A Antigen Negative (NEGATIVE) Influenza Type B Antigen Negative (NEGATIVE) Laboratory Tests Test 02/02/19 07:44 White Blood Count 13.8 x10^3/uL (4.0-11.0) Red Blood Count 4.44 x10^6/uL (4.30-5.70) Hemoglobin 13.4 g/dL (13.0-17.5) Hematocrit 39.0 % (39.0-53.0) Mean Corpuscular Volume 88 fL (79-100) Mean Corpuscular Hemoglobin 30 pg (25-35) Mean Corpuscular Hemoglobin Concent 34 g/dL (31-37) Red Cell Distribution Width 12.7 % (11.5-14.5) Platelet Count 375 x10^3/uL (140-400) Neutrophils (%) (Auto) 83 % (31-73) Lymphocytes (%) (Auto) 7 % (24-48) Monocytes (%) (Auto) 10 % (0-9) Eosinophils (%) (Auto) 0 % (0-3) Basophils (%) (Auto) 0 % (0-3) Neutrophils # (Auto) 11.5 x10^3/uL (1.8-7.7) Lymphocytes # (Auto) 1.0 x10^3/uL (1.0-4.8) Monocytes # (Auto) 1.3 x10^3/uL (0.0-1.1) Eosinophils # (Auto) 0.0 x10^3/uL (0.0-0.7) Basophils # (Auto) 0.0 x10^3/uL (0.0-0.2) Sodium Level 142 mmol/L (136-145) Potassium Level 3.5 mmol/L (3.5-5.1) Chloride Level 104 mmol/L (98-107) Carbon Dioxide Level 26 mmol/L (21-32) Anion Gap 12 (6-14) Blood Urea Nitrogen 8 mg/dL (8-26) Creatinine 0.8 mg/dL (0.7-1.3) Estimated GFR (Cockcroft-Gault) 114.3 BUN/Creatinine Ratio 10 (6-20) Glucose Level 114 mg/dL (70-99) Calcium Level 8.7 mg/dL (8.5-10.1) Total Bilirubin 0.3 mg/dL (0.2-1.0) Aspartate Amino Transf (AST/SGOT) 19 U/L (15-37) Alanine Aminotransferase (ALT/SGPT) 17 U/L (16-63) Alkaline Phosphatase 72 U/L (46-116) Total Protein 7.1 g/dL (6.4-8.2) Albumin 3.0 g/dL (3.4-5.0) Albumin/Globulin Ratio 0.7 (1.0-1.7) Impression . IMPRESSION: 1. Abnormal x-ray compatible with pneumonia post-influenza pneumonia. 2. MYCOPLASMA PNEUMONIA 3. Acute hypoxemic respiratory failure. 4. Scoliosis. 5. Leukocytosis. Plan . CONINTUE THE SAME NARROW ANTI BX PER ID 1. Concur with current medical management. Continue current broad-spectrum antibiotics. 2. Incentive spirometry. 3. Oxygen supplementation. 4. Nebulized treatments. As indicated above, the patient failed outpatient treatment. As a consequence, he was admitted for increasing shortness of air and hypoxemia. We will make further recommendation depending on the patient's clinical response. KAI VASQUEZ MD Feb 02, 2019 11:42
[2019-02-02 12:10] LABS: MYCOPLASMA PATIENT POSITIVE (NEGATIVE)
--- NOTE | 2019-02-02 12:21 | NUR ---
IP: Pt is Mycoplasma +. Dr. Whitney placed pt in droplet precautions.
[2019-02-02] MEDS: LACTOBACILLUS RHAMNOSUS GG 1 CAPSULE. PO SCH ×2 (12:51→20:37)
[2019-02-02 15:00] VITALS: BP 135/95
--- NOTE | 2019-02-02 16:10 | NUR ---
SW following. Chart reviewed, discussed with RN, pt currently on 2L o2. SW will continue to follow for discharge planning needs.
[2019-02-02 19:00] VITALS: BP 128/84
[2019-02-02 23:02] VITALS: BP 124/84
[2019-02-03] MEDS: IV NORMAL SALINE 1000ML BAG 1,000 ML IV SCH ×3 (01:37→23:34)
--- NOTE | 2019-02-03 01:51 | CONS ---
DATE OF CONSULTATION: 02/02/2019 LOCATION: The patient is in room #572. REQUESTING PHYSICIAN: Dr. Sierra. REASON FOR CONSULTATION: Pneumonia. HISTORY OF PRESENT ILLNESS: The patient is a 28-year-old gentleman who began to have symptoms of upper respiratory type infection and presented to an urgent care approximately 10 days ago, was prescribed Tamiflu, cough suppressant. Despite taking the medication he worsened and this past Tuesday, 3 days ago returned to urgent care, was prescribed Augmentin, prednisone, and codeine; however, he continued to worsen with difficulty, shortness of air with activity as well as ongoing cough. He has subjective fevers, chills, and sweats. He had sputum that was discolored, although no blood. No gross nausea, vomiting, diarrhea, constipation, or dysuria. He presented to [facility] on 02/01/2019, had a white count 17.4 with 89 segs and 3 bands. He was placed on Zosyn and levofloxacin. Chest x-ray was obtained, showed right upper lobe pneumonia. Cultures are currently pending. He currently is sitting upright in bed, still has issues with cough, but does feel somewhat better. He becomes short of air with ambulation still. PAST MEDICAL HISTORY: Positive for scoliosis. REVIEW OF SYSTEMS: Otherwise negative. ALLERGIES: No known drug allergies. SOCIAL HISTORY: He is a nonsmoker. He is , has a dog and a cat. Works at [employer]. 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 FAMILY HISTORY: Positive for hyperlipidemia and hypertension. CURRENT MEDICATIONS: Include levofloxacin, Zosyn, Catapres, Colace, Lovenox, albuterol, Atrovent, and Robitussin. Other meds are available and reviewed in the chart. PHYSICAL EXAMINATION: VITAL SIGNS: He is afebrile, temperature 97.8, pulse 97, respirations 16, blood pressure 125/85, and satting 96% on 2 liters. CONSTITUTIONAL: He is cooperative, in no acute distress. He is alert. He is pleasant. HEENT: Pupils equal and reactive. Normal conjunctivae. He is on nasal cannula oxygen. Oral cavity, oropharynx is clear. NECK: Supple with good range of motion. LUNGS: Had some mild crackles and mild rhonchi. HEART: S1, S2. ABDOMEN: Soft, nontender, nondistended with positive bowel sounds. EXTREMITIES: Without clubbing, cyanosis or gross edema. SKIN: Warm to touch without signs of rash. NEUROLOGIC: He is nonfocal and appropriate. PSYCHIATRIC: Affect is pleasant. LABORATORY DATA: White count 13.8, hemoglobin 13.4, platelets of 375, neutrophils are 83, and lymphs are 7. Creatinine 0.8, glucose 114. Normal liver function study tests. Procalcitonin less than 0.1. Urinalysis is not consistent with urinary tract infection. Influenza screen was negative. Chest x-ray reviewed in history of present illness. IMPRESSION: 1. Right upper lobe pneumonia, previous Augmentin, Tamiflu. 2. Leukocytosis, on steroids prior to admit. 3. Acute hypoxic respiratory failure. 4. Scoliosis. RECOMMENDATIONS: For now, continue Zosyn, continue levofloxacin, but convert to p.o., added mycoplasma to his laboratory values. Follow up strep legionella antigens. Respiratory viral panel not available. Could be a post-viral syndrome. We will follow up labs and cultures. Of note, he did receive Solu-Medrol x 1 on the too. Thank you for allowing me to participate in the patient's care. If you have any questions, please do not hesitate to contact me. QUINTIN HERNANDEZ MD DR: CHINO/omega JOB#: [id number] / [id number]
[2019-02-03] MEDS: IPRATRPIUM/ALBUTEROL 0.5/2.5MG 3 ML NEBU. NEB SCH ×5 (03:01→20:00)
[2019-02-03 03:09] VITALS: BP 119/78
[2019-02-03] MEDS: BENZOCAINE/MENTHOL LOZENGE. PO PRN ×2 (05:47→22:23)
[2019-02-03] MEDS: guaiFENesin ORAL 200 MG/10 ML LIQUID. PO PRN ×2 (05:47→22:23)
[2019-02-03 07:00] VITALS: BP 129/90
--- NOTE | 2019-02-03 08:18 | PDOC ---
PULMONARY PROGRESS NOTES Subjective sob better, has cough, occ sputum, no pain Vitals Vital Signs Date Time Temp Pulse Resp B/P (MAP) Pulse Ox O2 Delivery O2 Flow Rate FiO2 02/03/19 07:11 93 Room Air 02/03/19 07:00 97.9 104 20 129/90 (103) 97.9 02/03/19 03:01 2.0 ROS: No Nausea, No Chest Pain, No Abdominal Pain, No Increase Cough General: Alert Lungs: Wheezing Cardiovascular: S1 Abdomen: Soft, Non-tender Neuro Exam: Alert Extremities: No Edema Skin: Warm Labs Laboratory Tests Test 02/01/19 11:05 02/01/19 11:25 02/01/19 11:30 02/02/19 07:44 White Blood Count 17.4 x10^3/uL (4.0-11.0) 13.8 x10^3/uL (4.0-11.0) Red Blood Count 4.84 x10^6/uL (4.30-5.70) 4.44 x10^6/uL (4.30-5.70) Hemoglobin 14.6 g/dL (13.0-17.5) 13.4 g/dL (13.0-17.5) Hematocrit 42.0 % (39.0-53.0) 39.0 % (39.0-53.0) Mean Corpuscular Volume 87 fL (79-100) 88 fL (79-100) Mean Corpuscular Hemoglobin 30 pg (25-35) 30 pg (25-35) Mean Corpuscular Hemoglobin Concent 35 g/dL (31-37) 34 g/dL (31-37) Red Cell Distribution Width 12.5 % (11.5-14.5) 12.7 % (11.5-14.5) Platelet Count 396 x10^3/uL (140-400) 375 x10^3/uL (140-400) Neutrophils (%) (Auto) 92 % (31-73) 83 % (31-73) Lymphocytes (%) (Auto) 4 % (24-48) 7 % (24-48) Monocytes (%) (Auto) 4 % (0-9) 10 % (0-9) Eosinophils (%) (Auto) 0 % (0-3) 0 % (0-3) Basophils (%) (Auto) 0 % (0-3) 0 % (0-3) Neutrophils # (Auto) 15.9 x10^3/uL (1.8-7.7) 11.5 x10^3/uL (1.8-7.7) Lymphocytes # (Auto) 0.6 x10^3/uL (1.0-4.8) 1.0 x10^3/uL (1.0-4.8) Monocytes # (Auto) 0.7 x10^3/uL (0.0-1.1) 1.3 x10^3/uL (0.0-1.1) Eosinophils # (Auto) 0.1 x10^3/uL (0.0-0.7) 0.0 x10^3/uL (0.0-0.7) Basophils # (Auto) 0.0 x10^3/uL (0.0-0.2) 0.0 x10^3/uL (0.0-0.2) Segmented Neutrophils % 89 % (35-66) Band Neutrophils % 3 % (0-9) Lymphocytes % 8 % (24-48) Platelet Estimate Adequate (ADEQUATE) Prothrombin Time 14.1 SEC (11.7-14.0) Prothromb Time International Ratio 1.1 (0.8-1.1) Activated Partial Thromboplast Time 32 SEC (24-38) Fibrinogen 671 mg/dL (200-440) D-Dimer (Sasha) 1.27 ug/mlFEU (0.00-0.50) Sodium Level 136 mmol/L (136-145) 142 mmol/L (136-145) Potassium Level 3.9 mmol/L (3.5-5.1) 3.5 mmol/L (3.5-5.1) Chloride Level 98 mmol/L (98-107) 104 mmol/L (98-107) Carbon Dioxide Level 27 mmol/L (21-32) 26 mmol/L (21-32) Anion Gap 11 (6-14) 12 (6-14) Blood Urea Nitrogen 12 mg/dL (8-26) 8 mg/dL (8-26) Creatinine 0.8 mg/dL (0.7-1.3) 0.8 mg/dL (0.7-1.3) Estimated GFR (Cockcroft-Gault) 114.3 114.3 BUN/Creatinine Ratio 15 (6-20) 10 (6-20) Glucose Level 114 mg/dL (70-99) 114 mg/dL (70-99) Lactic Acid Level 1.0 mmol/L (0.4-2.0) Calcium Level 9.0 mg/dL (8.5-10.1) 8.7 mg/dL (8.5-10.1) Total Bilirubin 0.4 mg/dL (0.2-1.0) 0.3 mg/dL (0.2-1.0) Aspartate Amino Transf (AST/SGOT) 25 U/L (15-37) 19 U/L (15-37) Alanine Aminotransferase (ALT/SGPT) 24 U/L (16-63) 17 U/L (16-63) Alkaline Phosphatase 82 U/L (46-116) 72 U/L (46-116) Creatine Kinase 301 U/L (39-308) Creatine Kinase MB (Mass) 0.5 ng/mL (0.0-3.6) Creatine Kinase MB Relative Index 0.2 % (0-4) Total Protein 7.8 g/dL (6.4-8.2) 7.1 g/dL (6.4-8.2) Albumin 3.3 g/dL (3.4-5.0) 3.0 g/dL (3.4-5.0) Albumin/Globulin Ratio 0.7 (1.0-1.7) 0.7 (1.0-1.7) Procalcitonin < 0.10 ng/mL (0.00-0.10) Urine Collection Type Unknown Urine Color Yellow Urine Clarity Clear Urine pH 7.0 Urine Specific Corwith 1.010 Urine Protein Negative mg/dL (NEG-TRACE) Urine Glucose (UA) Negative mg/dL (NEG) Urine Ketones (Stick) 15 mg/dL (NEG) Urine Blood Negative (NEG) Urine Nitrite Negative (NEG) Urine Bilirubin Negative (NEG) Urine Urobilinogen Dipstick 0.2 mg/dL (0.2 mg/dL) Urine Leukocyte Esterase Negative (NEG) Urine RBC Occ /HPF (0-2) Urine WBC Occ /HPF (0-4) Urine Squamous Epithelial Cells Occ /LPF Urine Bacteria Few /HPF (0-FEW) Influenza Type A Antigen Negative (NEGATIVE) Influenza Type B Antigen Negative (NEGATIVE) Mycoplasma Serology (LAB) Positive (NEGATIVE) Impression . IMPRESSION: 1. Abnormal x-ray compatible with pneumonia post-influenza pneumonia. 2. MYCOPLASMA PNEUMONIA 3. Acute hypoxemic respiratory failure. 4. Scoliosis. 5. Leukocytosis. Plan . cont BD, has cough and a wheezing, add ICS ANTI BX PER ID 1. Concur with current medical management. Continue current broad-spectrum antibiotics. id on case 2. Incentive spirometry. 3. Oxygen supplementation. 4. Nebulized treatments. discussed w pt SCHUYLER VAZQUEZ MD Feb 03, 2019 08:17
[2019-02-03] MEDS ORDERED: BUDESONIDE 0.5 MG/2 ML NEBU. NEB ONE (08:30)
[2019-02-03] MEDS: ENOXAPARIN 40 MG/0.4 ML SYRINGE. SQ SCH (09:14)
[2019-02-03] MEDS: LACTOBACILLUS RHAMNOSUS GG 1 CAPSULE. PO SCH ×2 (09:14→23:34)
--- NOTE | 2019-02-03 10:49 | PDOC ---
Infectious Disease Note Subjective Subjective Feeling better over-all c/o nagging cough still Denies SOA/CP/F/C/S/N/V/D visiting, no concerns voiced ROS ROS per HPI Vital Sign Vital Signs Vital Signs Date Time Temp Pulse Resp B/P (MAP) Pulse Ox O2 Delivery O2 Flow Rate FiO2 02/03/19 08:00 Nasal Cannula 02/03/19 07:11 93 02/03/19 07:00 97.9 104 20 129/90 (103) 97.9 02/03/19 03:01 2.0 Physical Exam PHYSICAL EXAM CONSTITUTIONAL: Propped up in bed, alert, watching TV HEENT: Oral cavity, oropharynx is clear. NECK: Supple with good range of motion. LUNGS: Clear anteriorly, nonlabored HEART: S1, S2. ABDOMEN: Soft, nontender EXTREMITIES: Without clubbing, cyanosis or gross edema. SKIN: Warm to touch without signs of rash. NEUROLOGIC: Nonfocal and appropriate. Labs Micro Microbiology 02/01/19 Blood Culture - Preliminary, Resulted NO GROWTH AFTER 1 DAY Objective Assessment 1. Right upper lobe pneumonia, previous Augmentin, Tamiflu. + mycoplasma 2. Leukocytosis, on steroids prior to admit. improved 3. Acute hypoxic respiratory failure. 4. Scoliosis. Plan Plan of Care Levoflox po F/u strep and legionella antigens Resp viral panel not available F/u labs and cults Did receive solumedrol times one 02/01 D/w at bedside Patient seen and examined. Chart reviewed in detail. Case discussed with FITNESS LEADER. Agree with above plan RAMONA CHAU APRN Feb 03, 2019 10:49 SALOMON CRESPO MD Feb 03, 2019 18:44
[2019-02-03 11:00] VITALS: BP 128/86
--- NOTE | 2019-02-03 11:02 | PDOC ---
[employer] PROGRESS NOTE Chief Complaint Chief Complaint Right upper lobe pneumonia. Lesser bibasilar atelectasis or infiltrate in the setting of chest wall deformity SEPSIS ACUTE HYPOXIC RESP FAILURE FAILED OUTPT TREATMENT History of Present Illness History of Present Illness 02/02/19 Pt seen and examined Pt still wheezing DW RN Chart Reviewed 02/03/19 Pt seen and examined by me FORREST RN Chart reviewed Vitals/I&O Vitals/I&O: Vital Signs Date Time Temp Pulse Resp B/P (MAP) Pulse Ox O2 Delivery O2 Flow Rate FiO2 02/03/19 08:00 Nasal Cannula 02/03/19 07:11 93 02/03/19 07:00 97.9 104 20 129/90 (103) 97.9 02/03/19 03:01 2.0 I & O 02/02/19 02/02/19 02/03/19 15:00 23:00 07:00 Intake Total 1000 ml Balance 1000 ml Physical Exam Physical Exam: CONSTITUTIONAL: Propped up in bed, alert, watching TV HEENT: Oral cavity, oropharynx is clear. NECK: Supple with good range of motion. LUNGS: Clear anteriorly, nonlabored HEART: S1, S2. ABDOMEN: Soft, nontender EXTREMITIES: Without clubbing, cyanosis or gross edema. SKIN: Warm to touch without signs of rash. NEUROLOGIC: Nonfocal and appropriate. General: Alert, Oriented X3, Cooperative, mild distress Heart: Regular rate, Normal S1, Normal S2 Lungs: Wheezing Abdomen: Normal bowel sounds, Soft Extremities: No cyanosis, No edema Skin: No rashes Review of Systems Review of Systems: (-) CP, SOB Assessment and Plan Assessmemt and Plan Problems Medical Problems: (1) Hypoxia Status: Acute (2) Right upper lobe pneumonia Status: Acute (3) Tachycardia Status: Acute Plan: continue O2 continue IV abx home meds PT/OT dvt ppx appreciate ID recs full code Comment Review of Relevant I have reviewed the following items grazyna (where applicable) has been applied. Medications: Current Medications Medications (Trade) Dose Ordered Sig/Teri Route PRN Reason Start Time Stop Time Status Last Admin Dose Admin Levofloxacin (Levaquin) 500 mg DAILY06 PO 02/02/19 11:30 02/03/19 05:45 Lactobacillus Rhamnosus (Culturelle) 1 cap BID PO 02/02/19 12:00 02/03/19 09:14 SILVIO GAONA III DO Feb 03, 2019 11:02
[2019-02-03] MEDS: BUDESONIDE 0.5 MG/2 ML NEBU. NEB SCH ×2 (11:29→20:00)
[2019-02-03 15:00] VITALS: BP 123/82
[2019-02-03 19:00] VITALS: BP 130/81
[2019-02-03 23:00] VITALS: BP 115/79
[2019-02-04] MEDS: IV NORMAL SALINE 1000ML BAG 1,000 ML IV SCH ×2 (00:16→08:46)
[2019-02-04 03:00] VITALS: BP 120/80
[2019-02-04] MEDS: IPRATRPIUM/ALBUTEROL 0.5/2.5MG 3 ML NEBU. NEB SCH ×4 (04:00→11:33)
[2019-02-04 07:00] VITALS: BP 127/91
[2019-02-04] MEDS: BUDESONIDE 0.5 MG/2 ML NEBU. NEB SCH (07:05)
--- NOTE | 2019-02-04 07:45 | PDOC ---
PULMONARY PROGRESS NOTES Subjective denies sob, cough better, no pain Vitals Vital Signs Date Time Temp Pulse Resp B/P (MAP) Pulse Ox O2 Delivery O2 Flow Rate FiO2 02/04/19 07:07 97 Room Air 02/04/19 03:00 98.4 94 20 120/80 (93) 98.4 ROS: No Nausea, No Chest Pain, No Abdominal Pain, No Increase Cough General: Alert Lungs: Clear Cardiovascular: S1 Abdomen: Soft, Non-tender Neuro Exam: Alert Extremities: No Edema Skin: Warm Impression . IMPRESSION: 1. Abnormal x-ray compatible with pneumonia post-influenza pneumonia. 2. MYCOPLASMA PNEUMONIA 3. Acute hypoxemic respiratory failure. 4. Scoliosis. 5. Leukocytosis. improving 6. wheezing, resolved Plan . cont BD, ICS ANTI BX PER ID 1. Concur with current medical management. Continue current broad-spectrum antibiotics. id on case 2. Incentive spirometry. 3. Oxygen supplementation. 4. Nebulized treatments. discussed w SCHUYLER Celestin MD Feb 04, 2019 07:45
[2019-02-04] MEDS: LACTOBACILLUS RHAMNOSUS GG 1 CAPSULE. PO SCH (08:46)
[2019-02-04] MEDS: ENOXAPARIN 40 MG/0.4 ML SYRINGE. SQ SCH (08:47)
--- NOTE | 2019-02-04 10:24 | PDOC ---
Infectious Disease Note Subjective Subjective wants to go home Feeling better Less cough Denies SOA/CP/wheezing/F/C/N/V ROS ROS per HPI Vital Sign Vital Signs Vital Signs Date Time Temp Pulse Resp B/P (MAP) Pulse Ox O2 Delivery O2 Flow Rate FiO2 02/04/19 08:00 Room Air 02/04/19 07:07 97 02/04/19 07:00 97.7 97 18 127/91 (103) 97.7 Physical Exam PHYSICAL EXAM GENERAL: Propped up in bed, alert, smiling HEENT: Oral cavity, oropharynx is clear. NECK: Supple with good range of motion. LUNGS: Clear bilaterally, nonlabored HEART: S1, S2. ABDOMEN: Soft, nontender EXTREMITIES: Without clubbing, cyanosis or gross edema. SKIN: Warm to touch without signs of rash. NEUROLOGIC: Nonfocal and appropriate. Labs Micro Microbiology 02/01/19 Blood Culture - Preliminary, Resulted NO GROWTH AFTER 2 DAY Objective Assessment 1. Right upper lobe pneumonia, previous Augmentin, Tamiflu. + mycoplasma 2. Leukocytosis, on steroids prior to admit. improved 3. Acute hypoxic respiratory failure. 4. Scoliosis. Plan Plan of Care Levoflox po Strep and legionella antigens neg Resp viral panel not available Did receive solumedrol times one 02/01 D/w at bedside D/w Dr. Hughes Patient seen and examined. Chart reviewed in detail. Case discussed with THREAD ROLLER. Agree with above plan. RAMONA CHAU APRN Feb 04, 2019 10:23 SALOMON CRESPO MD Feb 04, 2019 18:20
[2019-02-04 11:00] VITALS: BP 130/88
--- NOTE | 2019-02-04 11:36 | PDOC ---
[employer] PROGRESS NOTE Chief Complaint Chief Complaint Right upper lobe pneumonia. Lesser bibasilar atelectasis or infiltrate in the setting of chest wall deformity SEPSIS ACUTE HYPOXIC RESP FAILURE FAILED OUTPT TREATMENT History of Present Illness History of Present Illness 02/02/19 Pt seen and examined Pt still wheezing DW RN Chart Reviewed 02/03/19 Pt seen and examined by me DW RN Chart reviewed 02/04/19 Pt seen and examined by me Reports that cough is improved DW RN Chart reviewed Vitals/I&O Vitals/I&O: Vital Signs Date Time Temp Pulse Resp B/P (MAP) Pulse Ox O2 Delivery O2 Flow Rate FiO2 02/04/19 08:00 Room Air 02/04/19 07:07 97 02/04/19 07:00 97.7 97 18 127/91 (103) 97.7 I & O 02/03/19 02/03/19 02/04/19 15:00 23:00 07:00 Intake Total 500 ml 650 ml 700 ml Balance 500 ml 650 ml 700 ml Physical Exam Physical Exam: GENERAL: Propped up in bed, alert, smiling HEENT: Oral cavity, oropharynx is clear. NECK: Supple with good range of motion. LUNGS: Clear bilaterally, nonlabored HEART: S1, S2. ABDOMEN: Soft, nontender EXTREMITIES: Without clubbing, cyanosis or gross edema. SKIN: Warm to touch without signs of rash. NEUROLOGIC: Nonfocal and appropriate. General: Alert, Oriented X3, Cooperative, mild distress Heart: Regular rate, Normal S1, Normal S2 Lungs: Clear Abdomen: Normal bowel sounds, Soft Extremities: No cyanosis, No edema Skin: No rashes Review of Systems Review of Systems: (+) cough (-) CP, SOB, fever, chills Assessment and Plan Assessmemt and Plan Problems Medical Problems: (1) Hypoxia Status: Acute (2) Right upper lobe pneumonia Status: Acute (3) Tachycardia Status: Acute Plan: continue PO abx home meds dvt ppx d/c pending ID recommendations full code Comment Review of Relevant I have reviewed the following items grazyna (where applicable) has been applied. SILVIO GAONA III, DO Feb 04, 2019 11:36
--- NOTE | 2019-02-04 12:45 | DS ---
DATE OF DISCHARGE: 02/04/2019 ADMISSION DIAGNOSIS: Right upper lobe pneumonia. DISCHARGE DIAGNOSES: Resolving mycoplasma pneumonia. HOSPITAL COURSE: The patient is a pleasant 28-year-old male who presented with mycoplasma pneumonia. He was admitted. He was treated with IV Levaquin. We gave him DuoNeb and oxygen. We consulted Pulmonary and Infectious Disease. Over the past couple of days, he is doing much better. Today, I saw him and examined him. Heart tones are normal. Lungs were clear. We plan to discharge home with close outpatient followup. DISPOSITION: Home. ACTIVITY: As tolerated. DIET: Low sodium. MEDICATIONS: Please see the MRAD. TOTAL TIME: 32 minutes. SILVIO GAONA DO DR: TIMA/omega JOB#: [id number] / [id number]
--- NOTE | 2019-02-04 13:07 | NUR ---
Discharge Note: [facility] Discharge instructions and discharge home medications reviewed with Patient and a copy given. All questions have been answered and understanding verbalized. The following instructions and handouts were given: pneumonia, adult; mycoplasma pulmonary infections. Discontinued lines and drains: Peripheral IV removed. No complications. Catheter tip intact. Patient discharged to home with self-care via ambulation to private vehicle. Pt. spouse at bedside during discharge.
== END 2019-02-04 13:00 | disposition home or self-care (01) | DRG 871 ==
LOC: ER 10:03 → 5 SOUTH 11:26
PROVIDERS: ADMIT Family Medicine; ATTEND Family Medicine
DX: A41.9 Sepsis, unspecified organism (principal); J15.7 Pneumonia due to Mycoplasma pneumoniae; J96.01 Acute respiratory failure with hypoxia; J98.11 Atelectasis; M41.9 Scoliosis, unspecified; Z82.49 Family history of ischemic heart disease and other diseases of the circulatory system; Z98.1 Arthrodesis status
CPT/HCPCS: 36415; 71045; 80053; 81001; 82553; 83605; 84145; 85007; 85025; 85379; 85384; 85610; 85730; 86738; 87040; 87070; 87205; 87449; 87804; 93005; 94640; 94760; 96365; 96375; J1650; J1956; J2270; J2543; J2930; J7030; J7620; J7626; 99285-25; G0378